=== PATIENT | male | born 1935 | race Hispanic/Latino ===

== ENCOUNTER 2018-01-07 05:31 | Observation (INO) | payer MEDICARE ==
[~2018-01-07] VITALS: Ht 172.7 cm; Wt 107.5 kg
[~2018-01-07 05:31] MED LIST: ASPIRIN81 MG; GLUCOSAMINE &1 EAC1; HYDROCHLOROTH12.5 M1 PO; LISINOPRIL10 MG PO; LOSARTAN POTAS100 MG PO; LOVASTATIN40 MG; METOCLOPRAMIDE H5 MG PO; OMEPRAZOLE40 MG PO; PANTOPRAZOLE SO40 MG PO; TRAMADOL-ACETAMI1 EA PO
[2018-01-07] MEDS ORDERED: GABAPENTIN 300 MG CAP ONE (06:05)
[2018-01-07] MEDS ORDERED: CEFAZOLIN SOD 2 GM/D5W 50ML 50 ML IV ONE (06:05)
[2018-01-07] MEDS ORDERED: DEXAMETHASONE SOD PHOS 10 MG/1 ML VIAL ONE (06:05)
[2018-01-07] MEDS ORDERED: CELECOXIB 200 MG CAP ONE (06:05)
[2018-01-07] MEDS ORDERED: BACITRACIN 50,000 UNIT VIAL ONE (06:13)
[2018-01-07] MEDS ORDERED: TRANEXAMIC ACID 1,000 MG/10 ML ML ONE (06:13)
[2018-01-07] MEDS ORDERED: ROPIVACAINE 246.25 MG, EPINEPHRINE HCL 1:1000 0.5 MG, CLONIDINE HCL 0.08 MG, KETOROLAC ... INJ ONE ×5 (07:30)
[2018-01-07] MEDS ORDERED: HYDROCODONE/APAP 5MG-325MG TAB PO PRN (09:00)
[2018-01-07] MEDS ORDERED: DOCUSATE SODIUM 100 MG CAP PO PRN (09:00)
[2018-01-07] MEDS ORDERED: ONDANSETRON HCL INJ 2 MG/ML VIAL IV PRN (09:00)
[2018-01-07] MEDS ORDERED: ACETAMINOPHEN 650 MG SUPP PR PRN (09:00)
[2018-01-07] MEDS ORDERED: DIPHENHYDRAMINE HCL INJ 50 MG/ML VIAL IM/IV PRN (09:00)
[2018-01-07] MEDS ORDERED: PROMETHAZINE HCL (IM) 25 MG/ML VIAL INJ PRN (09:00)
[2018-01-07] MEDS ORDERED: KETOROLAC TROMETHAMINE 30 MG/ML VIAL IV PRN (09:00)
[2018-01-07] MEDS ORDERED: ZOLPIDEM TARTRATE 5 MG TAB PO PRN (09:00)
[2018-01-07] MEDS ORDERED: HYDROCODONE/APAP 7.5MG-325MG 1 EA TAB PO PRN (09:00)
[2018-01-07] MEDS ORDERED: FENTANYL CITRATE/PF 100MCG/2 ML INJ ONE ×2 (09:26→18:45)
--- NOTE | 2018-01-07 09:42 | Diagnostic Imaging Report ---
PROCEDURE: X-RAY LEFT KNEE, ONE OR TWO VIEWS COMPARISON: None. INDICATIONS:POST LEFT KNEE SURGERY FINDINGS: See conclusion. CONCLUSION: Status post total left knee replacement with surrounding soft tissue swelling, air and cynthia consistent with recent surgery. No acute fractures. Ernie Kirkpatrick D.O. Dictated by: Ernie Kirkpatrick D.O. on 01/07/2018 at 9:50 Electronically approved by: Ernie Kirkpatrick D.O. on 01/07/2018 at 9:50
--- NOTE | 2018-01-07 10:02 | Operative Report ---
DATE OF PROCEDURE: January 07, 2018 FRAMING MACHINE TENDER: Jose Roberto Carnes PA-C The patient was brought to the operating room for induction of anesthesia. Throughout this case, my PA's assistance was necessary for retraction of soft tissue and positioning of the extremity. This allows for efficient and technically successful execution of the operation and is considered medically necessary. PREOPERATIVE DIAGNOSIS: Osteoarthritis, left knee. POSTOPERATIVE DIAGNOSIS: Osteoarthritis, left knee. PROCEDURE: Left total knee arthroplasty. INDICATIONS: The patient is an 82-year-old active gentleman who has a long history of advanced osteoarthritis of his left knee. He has failed conservative management and would like to proceed with a left total knee replacement. The risks and benefits have been discussed. The patient states he understands and wishes to proceed. DESCRIPTION OF PROCEDURE: The patient was brought to the operating room and placed under general anesthetic. He received prophylactic antibiotics, a regional block and tranexamic acid in the holding area. His left lower extremity was prepped and draped in a sterile manner. A preoperative time out was performed. The extremity was exsanguinated and a proximal tourniquet was inflated to 300 mmHg. An anterior approach with a medial parapatellar arthrotomy was performed. A small amount clear synovial fluid was removed from the joint. Soft tissue releases were performed to bring the knee up into flexion with the patella everted. Marginal osteophytes and meniscal remnants were removed. The cruciate ligaments were sacrificed. A Luna [employer] Nephew Sue II posterior stabilized knee system was used throughout the case. An extramedullary cutting guide was used to resect the proximal tibia. The tibial baseplate was noted to be a size #7. The central fin punch was impacted and attention was directed towards the distal femur. An intramedullary cutting guide was used to resect the distal femur in 6 degrees of valgus and rotation referencing off of a combination of landmarks including [place]ville line, the epicondylar axis and the posterior condyles. The femoral component was noted to be a size #8. The anterior and posterior cuts were made. Trial reductions were performed. An 11 mm ultra congruent tibial insert provided appropriate soft tissue balancing in flexion and extension. The patella was resurfaced with a 35 mm x 9 mm patellar button. The thickness was checked before and after and was right at 24 mm. Patellar tracking was concentric. The trial implants were removed. A 100 mL premixed pericapsular TANGELA injection was placed into the surrounding soft tissue. The knee was thoroughly irrigated with a shower-tip pulsatile lavage. The components were cemented into place using a single mix of Palacos cement preloaded with antibiotics. Care was taken to remove extravasated cement. The wound was further irrigated while the cement cured. The arthrotomy was then closed with interrupted #1 Ethibond. The knee was put through flexion and extension to ensure a secure closure. The skin was closed with subcuticular Vicryl and cynthia. A sterile bandage was applied. The patient was extubated and transported to the recovery room in stable condition. Blood loss was minimal. All needle and sponge counts were correct. Job#: [id number] MARTA
[2018-01-07 11:24] VITALS: BP 134/63
[2018-01-07 11:37] VITALS: BP 134/63
[2018-01-07] MEDS: ACETAMINOPHEN 1000 MG/100 ML IV SCH ×2 (12:00→18:00)
[2018-01-07 12:06] VITALS: BP 134/63
[2018-01-07] MEDS ORDERED: CEFAZOLIN SOD 1 GM/D5W 50ML 50 ML IV SCH (14:00)
[2018-01-07] MEDS: CEFAZOLIN SOD 1 GM VIAL IV SCH ×2 (14:55→21:22)
[2018-01-07 16:55] VITALS: BP 135/63
[2018-01-07] MEDS ORDERED: ONDANSETRON HCL INJ 2 MG/ML VIAL ONE (17:03)
[2018-01-07] MEDS ORDERED: EPHEDRINE SULFATE INJ 50 MG/10 ML SYR ONE (17:03)
[2018-01-07] MEDS ORDERED: PROPOFOL IV EMULSION 10 MG/ML 20 ML VIAL ONE (17:03)
[2018-01-07] MEDS ORDERED: ACETAMINOPHEN 1000 MG/100 ML IV ONE (17:03)
[2018-01-07] MEDS ORDERED: LIDOCAINE HCL 2% LOCAL INJ 5 ML SDV VIAL INJ ONE (17:03)
[2018-01-07] MEDS ORDERED: DEXAMETHASONE SOD PHOS INJ 4 MG/ML VIAL ONE (17:03)
[2018-01-07] MEDS ORDERED: MORPHINE SULFATE INJ 10 MG/ML ONE (18:45)
[2018-01-07] MEDS ORDERED: MIDAZOLAM HCL 2 MG/2 ML VIAL ONE (18:45)
[2018-01-07] MEDS ORDERED: LIDOCAINE 2% /EPINEPHRINE 20 ML SDV INJ ONE (19:25)
[2018-01-07] MEDS ORDERED: ROPIVACAINE 0.5% 5 MG/ML 30 ML SDV ONE (19:25)
[2018-01-07 20:00] VITALS: BP 119/61
[2018-01-07 21:22] VITALS: BP 119/61
[2018-01-07] MEDS: ASPIRIN 325 MG TAB PO SCH (21:22)
[2018-01-07] MEDS: CELECOXIB 100 MG CAP PO SCH (21:22)
[2018-01-07] MEDS: SODIUM CHLORIDE 0.9% 1000ML 1,000 ML IV SCH (23:48)
[2018-01-08] VITALS: BP 122/59
[2018-01-08] MEDS: ACETAMINOPHEN 1000 MG/100 ML IV SCH ×2 (00:43→06:09)
[2018-01-08 04:00] VITALS: BP 129/58
[2018-01-08] MEDS: SODIUM CHLORIDE 0.9% 1000ML 1,000 ML IV SCH (04:48)
[2018-01-08 05:19] LABS: HEMATOCRIT 39.5 % (38.2-49.6); HEMOGLOBIN 13.3 g/dL (14.0-18.0)
[2018-01-08] MEDS: CEFAZOLIN SOD 1 GM VIAL IV SCH (06:09)
[2018-01-08 08:00] VITALS: BP 124/61
[2018-01-08] MEDS: CELECOXIB 100 MG CAP PO SCH (08:07)
[2018-01-08] MEDS: ASPIRIN 325 MG TAB PO SCH (08:37)
[2018-01-08] MEDS ORDERED: ASPIRIN325 MG PO (08:43)
[2018-01-08] MEDS ORDERED: ACETAMINOPHEN 1000 MG/100 ML IV PRN (09:00)
[2018-01-08 09:36] VITALS: BP 124/61
[2018-01-08 12:03] VITALS: BP 129/60
[2018-01-08] MEDS ORDERED: NORCO 7.5-3251 EACH PO (14:59)
[2018-01-08] MEDS ORDERED: CELECOXIB 200 MG CAP PO SCH (17:00)
== END 2018-01-08 17:47 | disposition home or self-care (01) ==
LOC: OR 05:31 → PACU V 08:50 → MED/SURG 10:33
PROVIDERS: ADMIT Specialist; ATTEND Specialist
DX: M17.12 Unilateral primary osteoarthritis, left knee (principal); I12.9 Hypertensive chronic kidney disease with stage 1 through stage 4 chronic kidney disease, or unspecified chronic kidney disease; N18.9 Chronic kidney disease, unspecified; E78.5 Hyperlipidemia, unspecified; K21.9 Gastro-esophageal reflux disease without esophagitis; Z85.46 Personal history of malignant neoplasm of prostate; K29.70 Gastritis, unspecified, without bleeding; D64.9 Anemia, unspecified
CPT/HCPCS: 27447; 36415; 73560; 85014; 85018; 86850; 86900; 97116; 97139 ×2; 97161; 97530; C1713; G0378 ×2; G8978; G8979; J0171; J0690 ×2; J1100 ×2; J1885; J2001 ×2; J2250; J2270; J2405; J2795; J7030

== ENCOUNTER 2019-01-06 09:23 | Emergency (ER) | payer MEDICARE ==
[~2019-01-06] VITALS: Ht 172.7 cm; Wt 107.5 kg
[~2019-01-06 09:23] MED LIST changes: +ASPIRIN325 MG PO; +NORCO 7.5-3251 EACH PO
[2019-01-06] MEDS ORDERED: MECLIZINE HCL 12.5 MG TAB PO ONE (09:45)
[2019-01-06] MEDS ORDERED: CLONIDINE HCL 0.1 MG TAB PO NR (10:00)
--- NOTE | 2019-01-06 10:58 | Diagnostic Imaging Report ---
Examination: CT head without contrast Clinical Indication: Headache. Dizziness. Technique: Transaxial noncontrast images from the skull base through the vertex were obtained. Sagittal and coronal reformatted images were done. Dose modulation, iterative reconstruction, and/or weight based adjustment of the mA/kV was utilized to reduce the radiation dose to as low as reasonably achievable. Comparison: None. Findings: Scalp: No abnormalities. Bones: Intact. No fractures. No blastic or lytic lesions. Brain sulci: Appropriate for patient's age. Ventricles: Normal in size and configuration. No hydrocephalus. Extra-axial space: No acute abnormality, specifically, no hemorrhage. 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 There is mild regional mass effect upon the bilateral middle and inferior frontal gyri. Parenchyma: No abnormal densities. No masses, hemorrhage, or acute or chronic cortical based vascular insults. Suprasellar region: No abnormalities. Craniocervical junction: The foramen magnum is patent. No Chiari one malformation. Impression: No acute intracranial abnormality. 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 Signed by: Dr. Marilee Yates M.D. on 01/06/2019 10:55 AM
[2019-01-06] MEDS ORDERED: ASPIRIN 81 MG CHEW TAB PO ONE (11:35)
[2019-01-06 11:56] LABS: BASOPHILS % 0.5 % (0.0-1.0); EOSINOPHILS # (AUTO) 0.2 (0.0-0.4); EOSINOPHILS % 3.1 % (0.0-6.0); HEMATOCRIT 45.9 % (38.2-49.6); HEMOGLOBIN 14.8 g/dL (14.0-18.0); LYMPHOCYTES # (AUTO) 1.6 (1.0-3.2); MEAN CORPUSCULAR HEMOGLOBIN 30.5 pg (28-32); MEAN CORPUSCULAR HGB CONC 32.2 g/dL (31-35); MEAN CORPUSCULAR VOLUME 94.6 fL (81-99); MONOCYTES # (AUTO) 0.6 (0.2-0.8); MONOCYTES % 9.9 % (4.4-11.3); NEUTROPHILS # (AUTO) 3.5 (2.1-6.9); NEUTROPHILS % 59.3 % (38.7-80.0); PLATELET COUNT 202 x10e3/uL (140-360); RED BLOOD COUNT 4.85 x10e6/uL (4.3-5.7); RED CELL DISTRIBUTION WIDTH 13.2 % (11.7-14.4)
[2019-01-06 12:20] LABS: ALANINE AMINOTRANSFERASE 18 IU/L (0-55); ALBUMIN 4.2 g/dL (3.5-5.0); ALBUMIN/GLOBULIN RATIO 1.1 (0.8-2.0); ALKALINE PHOSPHATASE 61 IU/L (40-150); ANION GAP 14.1 mmol/L (8-16); BLOOD UREA NITROGEN 29 mg/dL (7-26); BUN/CREATININE RATIO 18 (6-25); CALCIUM 9.5 mg/dL (8.4-10.2); CARBON DIOXIDE 23 mmol/L (22-29); CHLORIDE 104 mmol/L (98-107); CREATINE KINASE 147 IU/L (30-200); CREATININE, SERUM 1.64 mg/dL (0.72-1.25); EST GLOMERULAR FILTRATION RATE 40 ML/MIN (60-); GLUCOSE 98 mg/dL (74-118); SODIUM 135 mmol/L (136-145)
[2019-01-06 12:46] LABS: POTASSIUM 6.1 mmol/L (3.5-5.1)
[2019-01-06] MEDS ORDERED: SOD POLYSTYRENE SULFONATE SUSP 15 GM/60 ML BTL PO ONE (13:00)
[2019-01-06 15:18] LABS: ANION GAP 12.6 mmol/L (8-16); CREATININE, SERUM 1.64 mg/dL (0.72-1.25); POTASSIUM 4.6 mmol/L (3.5-5.1)
[2019-01-06] MEDS ORDERED: MECLIZINE HCL12.5 MG PO (15:47)
== END 2019-01-06 16:05 | disposition home or self-care (01) ==
LOC: ER 09:23
DX: H81.42 Vertigo of central origin, left ear (principal); R51 Headache; E87.5 Hyperkalemia; N18.9 Chronic kidney disease, unspecified; F32.9 Major depressive disorder, single episode, unspecified; K21.9 Gastro-esophageal reflux disease without esophagitis; N40.0 Benign prostatic hyperplasia without lower urinary tract symptoms
CPT/HCPCS: 36415; 70450; 80048; 80053; 82550; 82553; 84484; 85025; 93005; 99283; J8597

== ENCOUNTER 2021-03-25 15:42 | Emergency (ER) | payer MEDICARE ==
[~2021-03-25] VITALS: Ht 172.7 cm; Wt 106.1 kg
[~2021-03-25 15:42] MED LIST changes: +AMLODIPINE BESY10 MG PO; +FLOMAX0.4 MG PO; +MECLIZINE HCL12.5 MG PO; +SODIUM BICARBO650 MG PO; +TERAZOSIN HCL1 MG PO; +TRIAMTERENE-HCTZ1 EA PO
[2021-03-25 18:45] LABS: CLARITY,URINE CLEAR (CLEAR); COLOR,URINE PINK (YELLOW); LEUKOCYTE ESTERASE ,URINE NEGATIVE (NEGATIVE); NITRITE,URINE NEGATIVE (NEGATIVE)
[2021-03-25 18:46] LABS: KETONES,URINE NEGATIVE (NEGATIVE); PROTEIN,URINE DIPSTICK TRACE (NEGATIVE); URINE UROBILINOGEN 0.2 mg/dL (0.2 - 1)
[2021-03-25] MEDS ORDERED: CIPRO500 MG PO (18:48)
[2021-03-25 18:57] LABS: BACTERIA,URINE RARE /HPF; EPITHELIAL CELLS,URINE FEW /LPF; RBC,URINE 21-50 /HPF (0-5); WBC,URINE (MAN) 0-5 /HPF (0-5)
== END 2021-03-25 18:50 | disposition home or self-care (01) ==
LOC: ER 16:57
DX: R31.9 Hematuria, unspecified (principal); I12.0 Hypertensive chronic kidney disease with stage 5 chronic kidney disease or end stage renal disease; N18.6 End stage renal disease; Z99.2 Dependence on renal dialysis; E78.5 Hyperlipidemia, unspecified; K21.9 Gastro-esophageal reflux disease without esophagitis; F32.A Depression, unspecified; H91.92 Unspecified hearing loss, left ear
CPT/HCPCS: 74176; 81001; 87086; 99283

== ENCOUNTER 2021-08-28 06:13 | Inpatient (IN) | payer MEDICARE ==
[~2021-08-28] VITALS: Ht 200.7 cm; Wt 88.5 kg
[~2021-08-28 06:13] MED LIST changes: +CIPRO500 MG PO
[2021-08-28] MEDS ORDERED: CEFTRIAXONE 1 GM VIAL IV SCH (06:30)
[2021-08-28] MEDS ORDERED: ACETAMINOPHEN 325 MG TAB PO ONE (06:30)
[2021-08-28 06:37] LABS: BASOPHILS % 0.2 % (0.0-1.0); EOSINOPHILS # (AUTO) 0.1 (0.0-0.4); EOSINOPHILS % 1.2 % (0.0-6.0); HEMATOCRIT 23.3 % (38.2-49.6); HEMOGLOBIN 7.5 g/dL (14.0-18.0); LYMPHOCYTES # (AUTO) 0.9 (1.0-3.2); LYMPHOCYTES % 8.2 % (18.0-39.1); MEAN CORPUSCULAR HEMOGLOBIN 29.6 pg (28-32); MEAN CORPUSCULAR HGB CONC 32.2 g/dL (31-35); MEAN CORPUSCULAR VOLUME 92.1 fL (81-99); MONOCYTES # (AUTO) 0.8 (0.2-0.8); MONOCYTES % 7.8 % (4.4-11.3); NEUTROPHILS # (AUTO) 8.5 (2.1-6.9); NEUTROPHILS % 81.7 % (38.7-80.0); PLATELET COUNT 364 x10e3/uL (140-360); RED BLOOD COUNT 2.53 x10e6/uL (4.3-5.7); RED CELL DISTRIBUTION WIDTH 13.9 % (11.7-14.4)
[2021-08-28 06:53] LABS: CLARITY,URINE SL CLOUDY (CLEAR); COLOR,URINE YELLOW (YELLOW); LEUKOCYTE ESTERASE ,URINE SMALL (NEGATIVE); NITRITE,URINE NEGATIVE (NEGATIVE)
[2021-08-28 06:54] LABS: BACTERIA,URINE FEW /HPF; EPITHELIAL CELLS,URINE FEW /LPF; KETONES,URINE NEGATIVE (NEGATIVE); PROTEIN,URINE DIPSTICK TRACE (NEGATIVE); RBC,URINE 21-50 /HPF (0-5); URINE UROBILINOGEN 0.2 mg/dL (0.2 - 1)
[2021-08-28 06:57] LABS: INR 1.16; PROTHROMBIN TIME 15.8 seconds (11.9-14.5)
[2021-08-28 06:58] LABS: PARTIAL THROMBOPLASTIN TIME 32.9 seconds (23.8-35.5)
[2021-08-28 07:17] LABS: ALBUMIN 2.5 g/dL (3.5-5.0); ALBUMIN/GLOBULIN RATIO 0.8 (0.8-2.0); CALCIUM 8.1 mg/dL (8.4-10.2); CREATININE, SERUM 0.92 mg/dL (0.72-1.25)
[2021-08-28] MEDS ORDERED: FINASTERIDE5 MG PO (07:36)
[2021-08-28] MEDS ORDERED: METRONIDAZOLE500 MG PO (07:36)
[2021-08-28] MEDS ORDERED: CLONIDINE HCL0.1 MG PO (07:36)
[2021-08-28] MEDS ORDERED: HYDROCHLOROTHIA25 MG PO (07:36)
[2021-08-28] MEDS ORDERED: LASIX20 MG PO (07:36)
[2021-08-28] MEDS ORDERED: ULTRAM50 MG PO (07:36)
[2021-08-28] MEDS ORDERED: AMOXICILLIN500 MG PO (07:36)
[2021-08-28] MEDS ORDERED: OXYBUTYNIN CHLOR5 M1 PO (07:37)
[2021-08-28] MEDS ORDERED: ONDANSETRON HCL INJ 2MG/ML 2ML 2 MG/ML VIAL IV PRN (11:15)
[2021-08-28 12:29] VITALS: BP 122/55
[2021-08-28 13:51] VITALS: BP 113/71
[2021-08-28 14:05] VITALS: BP 113/71
[2021-08-28] MEDS ORDERED: SODIUM CHLORIDE 0.9% 250ML 250 ML ONE (15:24)
[2021-08-28 15:44] LABS: HIV 1&2 AB SCREEN NON-REACTIVE (NONREACTIVE)
[2021-08-28 16:08] VITALS: BP 113/51
[2021-08-28 20:30] VITALS: BP 108/50
[2021-08-29] VITALS (7 sets, daily range): BP systolic 116–132; BP diastolic 49–89
[2021-08-29] MEDS ORDERED: GUAIFENESIN/DEXTROMETHORPHAN LIQD 5 ML UDC PO PRN (00:15)
[2021-08-29] MEDS ORDERED: DOCUSATE SODIUM 100 MG CAP PO PRN (00:15)
[2021-08-29] MEDS ORDERED: MAGNESIUM/ALUMINUM/SIMETHICONE 30 ML UDC PO PRN (00:15)
[2021-08-29] MEDS ORDERED: ACETAMINOPHEN 325 MG TAB PO PRN (00:15)
[2021-08-29] MEDS ORDERED: MELATONIN 3 MG TAB PO PRN (00:15)
[2021-08-29] MEDS ORDERED: SODIUM CHLORIDE 0.9% 250ML 250 ML ONE ×2 (01:34→12:36)
[2021-08-29 05:54] LABS: BASOPHILS % 0.3 % (0.0-1.0); EOSINOPHILS # (AUTO) 0.2 (0.0-0.4); EOSINOPHILS % 2.1 % (0.0-6.0); HEMATOCRIT 23.6 % (38.2-49.6); LYMPHOCYTES # (AUTO) 1.2 (1.0-3.2); LYMPHOCYTES % 12.9 % (18.0-39.1); MEAN CORPUSCULAR HGB CONC 29.2 g/dL (31-35); MEAN CORPUSCULAR VOLUME 99.2 fL (81-99); MONOCYTES % 10.5 % (4.4-11.3); NEUTROPHILS # (AUTO) 7.1 (2.1-6.9); NEUTROPHILS % 73.1 % (38.7-80.0); PLATELET COUNT 310 x10e3/uL (140-360); RED BLOOD COUNT 2.38 x10e6/uL (4.3-5.7); RED CELL DISTRIBUTION WIDTH 14.2 % (11.7-14.4)
[2021-08-29] MEDS ORDERED: CEFTRIAXONE 1 GM VIAL IM ONE (06:00)
[2021-08-29 06:04] LABS: HEMOGLOBIN 6.9 g/dL (14.0-18.0)
[2021-08-29 06:11] LABS: ALBUMIN 2.3 g/dL (3.5-5.0); ALBUMIN/GLOBULIN RATIO 0.9 (0.8-2.0); ANION GAP 10.4 mmol/L (8-16); CALCIUM 7.7 mg/dL (8.4-10.2); CREATININE, SERUM 0.98 mg/dL (0.72-1.25); POTASSIUM 4.4 mmol/L (3.5-5.1)
[2021-08-29] MEDS ORDERED: SODIUM CHLORIDE 0.9% 250ML 250 ML IV ONE (07:15)
[2021-08-29 07:59] LABS: ANISOCYTOSIS SLIGHT; HYPOCHROMASIA MODERATE; OVALOCYTES FEW; PLATELET ESTIMATE ADEQUATE; PLATELET MORPHOLOGY COMMENT NORMAL; POLYCHROMASIA FEW; RBC MORPHOLOGY COMMENT ABNORMAL
[2021-08-29] MEDS ORDERED: MULTIVITAMINS/MINERALS TAB PO SCH (09:00)
[2021-08-30] MEDS ORDERED: DOCUSATE SODIUM 100 MG CAP PO SCH (09:00)
== END 2021-08-29 21:03 | disposition short-term general hospital (02) | DRG 699 ==
LOC: ER 06:22 → ERHOLD 11:10 → MED/SURG3 11:52
PROVIDERS: ADMIT Internal Medicine; ATTEND Internal Medicine
PROC: 3E03329 Introduction of Other Anti-infective into Peripheral Vein, Percutaneous Approach (ICD-10-PCS; 2021-08-28)
PROC: 30233N1 Transfusion of Nonautologous Red Blood Cells into Peripheral Vein, Percutaneous Approach (ICD-10-PCS; principal; 2021-08-29)
DX: T83.592A Infection and inflammatory reaction due to indwelling ureteral stent, initial encounter (principal); N99.842 Postprocedural seroma of a genitourinary system organ or structure following a genitourinary system procedure; E87.1 Hypo-osmolality and hyponatremia; N10 Acute pyelonephritis; A15.0 Tuberculosis of lung; C66.1 Malignant neoplasm of right ureter; C67.9 Malignant neoplasm of bladder, unspecified; E83.51 Hypocalcemia; E78.5 Hyperlipidemia, unspecified; N40.1 Benign prostatic hyperplasia with lower urinary tract symptoms; R33.8 Other retention of urine; M19.90 Unspecified osteoarthritis, unspecified site; R91.8 Other nonspecific abnormal finding of lung field; J43.9 Emphysema, unspecified; E66.9 Obesity, unspecified; Z68.34 Body mass index [BMI] 34.0-34.9, adult; K21.9 Gastro-esophageal reflux disease without esophagitis; H91.93 Unspecified hearing loss, bilateral; E78.00 Pure hypercholesterolemia, unspecified; N28.1 Cyst of kidney, acquired; E27.9 Disorder of adrenal gland, unspecified; R19.00 Intra-abdominal and pelvic swelling, mass and lump, unspecified site; Y73.2 Prosthetic and other implants, materials and accessory gastroenterology and urology devices associated with adverse incidents; Z20.822 Contact with and (suspected) exposure to COVID-19; Z87.891 Personal history of nicotine dependence; R19.04 Left lower quadrant abdominal swelling, mass and lump
CPT/HCPCS: 36415; 71045; 71250; 74176; 80053; 81001; 83518; 83605; 83880; 85025; 85610; 85730; 86635; 86850; 86900; 86920; 87040; 87070; 87086; 87116; 87206; 87390; 93005; 94799; 99284; G0433; G0435; J0456; J0696; J2543; J7050; P9016